=== PATIENT | female | born 1970 | race Caucasian/White ===

== ENCOUNTER 2019-12-11 19:37 | Emergency (ER) | payer OTHER, SELFPAY ==
--- NOTE | 2019-12-11 19:30 | DI.RAD_ITS ---
EXAM: XR FINGER LT RING EXAM DATE/TIME: CLINICAL HISTORY: trauma, pain, swelling. TECHNIQUE: 2D digital imaging was performed. COMPARISON: None. FINDINGS: BONES: There is a nondisplaced fracture the ulnar aspect of the terminal tuft of the ring finger. No bony destructive lesion is seen. JOINTS: No dislocation is present. SOFT TISSUE: Soft tissue swelling of the ring finger distally. IMPRESSION: Nondisplaced fracture of the terminal tuft of the ring finger. DATA REPOSITORY: RADIATION DOSE DELIVERED:
[2019-12-11 19:41] VITALS: BP 128/55; PULSE 77; RESP 18; TEMP 36.8; O2SAT 98
--- NOTE | 2019-12-11 19:48 | ED.GENADUL_ITS ---
Discharge Plan Disposition Patient Disposition: HOME Condition: Stable Discharge Details Chief Complaint: Orthopedic Clinical Impression: Fracture of distal phalanx of finger of left hand Primary Care Provider: Tata,Local ED Provider: Manuel Sanchez Home Meds and New Rx's Prescriptions: No Action No Known Home Meds RF: 0 Discharge Instructions Instructions: Finger Fracture (ED) Additional Instructions: Continue ice, elevation to reduce pain and swelling. May use Tylenol 650 mg every 4-6 hours and/or ibuprofen 600 to 800 mg every 6-8 hours as needed for pain. Follow-up with your regular doctor in [place] in 10 to 12 days time for recheck. Please wear splint as discussed until reevaluated. Return to the ER for any acute concerns while in this area. Medical Decision Making 49-year-old female had a rock roll on her left hand early this morning with progressive development of pain and swelling of the distal phalanx of the left fourth digit throughout the day. Referred for x-ray which reveals nondisplaced fracture of the distal phalanx. Patient placed in splint. She lives in the [facility] and will follow-up with primary care in the next 10 to 14 days for recheck. HPI General Mode of arrival: ambulatory . Date/Time Provider Initiated Documentation: 12/11/19 19:38 . Limitations to Documentation: no limitations . Information obtained by: patient . History of Present Illness 49 year old F presents to the emergency department with the chief complaint of Left fourth ri ng finger injury, pain and swelling, described as moderate, Quality is described as dull, and is localized to the left and upper extremity. Patient reports no radiation. Patient started experiencing this hour(s) and it has been constant. No relieving factors improve symptom(s), No exacerbating factors reported . Patient notes no other symptoms.. Patient did receive the following treatments prior to arrival, NSAID Related Data Home Medications Medication Instructions Recorded Confirmed Unknown [No Known Home Meds] 12/11/19 12/11/19 Allergies Allergy/AdvReac Type Severity Reaction Status Date / Time No Known Allergies Allergy Unverified 12/11/19 19:49 General Stated Complaint: Orthopedic [place]: 4 Review of Systems Narrative: 6 systems reviewed and otherwise negative [facility] Medical History delivery delivered (Acute) Rheumatoid arthritis (Chronic) Surgical History (Updated 12/11/19 @ 19:49 by Louise Palomino) H/O myomectomy (Acute) Social History Smoking/Tobacco Use Status: Never Exam Narrative Exam Narrative: GEN: awake, alert, oriented 3. Pleasant, well groomed, interactive. HEAD: Normocephalic, atraumatic EYES: PERRL, EOMI CHEST/RESP: No respiratory distress EXT: Full ROM, left fourth ring finger palmar aspect distal phalanx with palmar aspect ecchymosis, swelling and tenderness. Sensation is intact. The proximal portion of the finger is unaffected. There is no significant subungual hematoma. Neuro: Grossly normal neurologic exam, conversant, interactive. Psych: Speech fluent, thoughts congruent, affect normal Course Vital Signs Vital signs: Vital Signs Temperature 36.8 C 12/11/19 19:41 Pulse 77 12/11/19 19:41 Respiratory Rate 18 12/11/19 19:41 Blood Pressure 128/55 L 12/11/19 19:41 Pulse Oximetry 98 12/11/19 19:41 Temperature 36.8 C 12/11/19 19:41 Temperature Source Temporal Artery Scan 12/11/19 19:41 Pulse 77 12/11/19 19:41 Respiratory Rate 18 12/11/19 19:41 Respiratory Effort 12/11/19 19:44 Blood Pressure 128/55 L 12/11/19 19:41 Pulse Oximetry 98 12/11/19 19:41 Oxygen Delivery Method Room Air 12/11/19 19:41 Oxygen Flow Rate 0 12/11/19 19:41 Pain Level 4 12/11/19 19:45
--- NOTE | 2019-12-11 19:54 | NUR.NOTE ---
pt given ice pack
--- NOTE | 2019-12-11 20:09 | DI.VRAD_ITS ---
PROCEDURE INFORMATION: Exam: XR Left Finger(s) Exam date and time: 12/11/2019 8:00 PM Age: 49 years old Clinical indication: Finger(s); Left; Patient HX: Trauma, pain, swelling TECHNIQUE: Imaging protocol: XR Left fingers. Views: Minimum 2 views. COMPARISON: No relevant prior studies available. FINDINGS: Bones/joints: Irregularity is seen within the distal tuft of the 4th distal phalanx, suggesting a nondisplaced fracture. Soft tissues: Mild soft tissue swelling is seen within the 4th finger. IMPRESSION: Irregularity within the distal tuft of the 4th distal phalanx, suggesting a nondisplaced fracture. Dictated and Authenticated by: Cele Rodrigez MD. Ordering:ANOOP Jackson MD
== END 2019-12-11 20:20 | disposition home or self-care (01) ==
PROVIDERS: Emergency Provider Emergency Medicine
DX: S62.665A Nondisplaced fracture of distal phalanx of left ring finger, initial encounter for closed fracture (principal); W20.8XXA Other cause of strike by thrown, projected or falling object, initial encounter
CPT/HCPCS: 26750; 73140